=== PATIENT | female | born 1980 | race Caucasian/White ===

== ENCOUNTER 2022-03-21 17:26 | Emergency (ER) | payer OTHER ==
[2022-03-21 18:20] LABS: RED BLOOD COUNT 4.76 M/UL (4.00-5.10); WHITE BLOOD COUNT 12.3 K/UL (4.5-11.0)
[2022-03-21 18:35] LABS: BUN/CREATININE RATIO 22 (0-10)
[2022-03-21] MEDS ORDERED: TORADOL 10 MG T10 MG PO (19:53)
[2022-03-21] MEDS ORDERED: CLINDAMYCIN HC150 MG PO (19:53)
== END 2022-03-21 20:03 | disposition home or self-care (01) ==
LOC: ER1 17:26
PROVIDERS: Nurse Practitioner
DX: K02.9 Dental caries, unspecified (principal); J45.909 Unspecified asthma, uncomplicated; F17.200 Nicotine dependence, unspecified, uncomplicated
CPT/HCPCS: 80053; 85025; 96372; 99283; J1885